=== PATIENT | female | born 1975 | race Caucasian/White ===

== ENCOUNTER 2020-01-23 13:57 | Outpatient (REF) | payer OTHER, SELFPAY | END 2020-01-23 13:58 | disposition home or self-care (01) | LOC: HO.LAB 13:57 | PROVIDERS: Visit Provider Internal Medicine | DX: Z20.828 Contact with and (suspected) exposure to other viral communicable diseases (principal) | CPT/HCPCS: C9803; U0003 ==

== ENCOUNTER 2021-10-28 09:51 | Outpatient (REF) | payer OTHER, SELFPAY ==
[2021-10-28 11:50] LABS: Folate 8.1 ng/mL (> or = 4.0); Vitamin B12 234 pg/mL (200-900)
[2021-11-01 11:17] LABS: 18 KD (IgG) Band NON-REACTIVE; 23 KD (IgG) Band NON-REACTIVE; 23 KD (IgM) Band REACTIVE; 28 KD (IgG) Band NON-REACTIVE; 30 KD (IgG) Band NON-REACTIVE; 39 KD (IgM) Band NON-REACTIVE; 39KD (IgG) Band NON-REACTIVE; 41 KD (IgM) Band NON-REACTIVE; 41KD (IgG) Band NON-REACTIVE; 45 KD (IgG) Band NON-REACTIVE; 58 KD (IgG) Band NON-REACTIVE; 66 KD (IgG) Band NON-REACTIVE; 93 KD (IgG) Band NON-REACTIVE; Lyme IgG Blot Interp NEGATIVE (NEGATIVE); Lyme IgM Blot Interp NEGATIVE (NEGATIVE)
[2021-11-01 11:20] LABS: Lyme Abs Screen EQUIVOCAL
== END 2021-10-28 09:52 | disposition home or self-care (01) ==
LOC: HO.LAB 09:51
PROVIDERS: Visit Provider Psychiatry & Neurology Neurology
DX: R20.2 Paresthesia of skin (principal); G43.009 Migraine without aura, not intractable, without status migrainosus
CPT/HCPCS: 36415; 82607; 82746; 86617; 86618

== ENCOUNTER 2023-05-05 13:21 | Emergency (ER) | payer OTHER, SELFPAY ==
--- NOTE | ~2023-05-05 | CT_ITS ---
EXAMINATION: CT ABDOMEN AND PELVIS WITHOUT CONTRAST CLINICAL INFORMATION: Right-sided flank pain COMPARISON: Abdominal ultrasound 04/28/[address] abdomen pelvis 02/13/2010 TECHNIQUE: Multidetector volumetric imaging was performed from the superior aspect of the liver through the pubic symphysis. Sagittal and coronal reformatted images were obtained on the technologist's workstation. This CT examination was performed using dose optimization techniques as appropriate, variously including the following: *Automated exposure control *Adjustment of mA and/or kV according to patient size (this includes techniques or standardized protocols for targeted exams where dose is matched to indication/reason for exam; i.e. extremities or head) *Use of iterative reconstruction technique DLP: 312 mGy-cm FINDINGS: LUNG BASES: The visualized lung bases are unremarkable. LIVER, GALLBLADDER, AND BILIARY TREE: The liver is normal in size, shape, and attenuation. No focal hepatic lesion or biliary ductal dilatation is present. Gallstones are suspected in the gallbladder with an homogeneity. The gallbladder is otherwise unremarkable with no evidence of calcified gallstones, gallbladder wall thickening, or obvious pericholecystic inflammatory changes. PANCREAS: Unremarkable. SPLEEN: Unremarkable. ADRENAL GLANDS: Unremarkable. KIDNEYS AND URETERS: The kidneys are normal in size, shape, and attenuation. Small bilateral punctate calculi are present in the kidneys the largest at the left upper pole measuring only 2 mm in size. No hydronephrosis, hydroureter, or ureteral calculi seen. No perinephric stranding. No renal masses. BLADDER: Bladder is only partially distended but unremarkable. GASTROINTESTINAL TRACT: The small and large bowel are unremarkable aside from some colonic diverticula without diverticulitis.. The appendix is unremarkable. ABDOMINAL WALL: No significant hernia is appreciated. LYMPH NODES: No retroperitoneal lymphadenopathy. VASCULAR: Unremarkable. PELVIC VISCERA: The uterus and adnexa are unremarkable. IUD is present in good position in the uterus. OSSEOUS STRUCTURES: Unremarkable. CT/CT abdomen pelvis wo IV con IMPRESSION: 1. A cause for the patient's right-sided flank pain has not been found. 2. Incidental note made of bilateral nonobstructing renal calculi, cholelithiasis and colonic diverticulosis without diverticulitis. Fleischner guidelines were followed.
[2023-05-05 13:41] VITALS: BP 107/51; PULSE 76; RESP 18; TEMP 37; O2SAT 100; BMI 21.3
--- NOTE | 2023-05-05 13:47 | ED_ITS ---
HPI - Back Pain/Injury General Chief Complaint: Back Pain/Injury Stated Complaint: Lower back/hip pain no injury Time Seen by Provider: 05/05/23 17:23 Source: patient Mode of arrival: ambulatory History of Present Illness HPI Narrative: 47-year-old female without significant past medical history other than renal colic presents with 1 week right flank pain but pain is more significant over mid buttock with radiation down into the right lower extremity but no bowel or bladder issues, no fevers or chills. Patient has been to [facility] as well as urgent care and has a follow-up with her primary care doctor on 05/13. Related Data Allergies Allergy/AdvReac Type Severity Reaction Status Date / Time morphine [Morphine] Allergy Mild VOMITING Verified 05/05/23 13:46 hydromorphone [Dilaudid] Allergy Unknown Vomiting Verified 05/05/23 13:46 From Dilaudid Allergy Severe VOMITING Uncoded 11/02/19 15:06 Review of Systems 2 Review of Systems: Pertinent positives and negatives as stated in HPI [facility] Past Medical History Source: nursing notes reviewed Social History Social History Advance Directives: No Advance Directives Information Provided: No Physical Exam 2 Vital Signs: Vital Signs: Last Vital Signs Temp 0 F L 05/05/23 19:03 Pulse 0 L 05/05/23 19:03 Resp 0 L 05/05/23 19:03 BP 0/0 L 05/05/23 19:03 Pulse Ox 100 05/05/23 13:41 O2 Del Method Room Air 05/05/23 13:41 BMI result Body Mass Index 21.3 VITAL SIGNS: Reviewed. GENERAL: Well developed, well nourished, in no acute distress. HEAD: Normocephalic/atraumatic EYES: PERRLA, EOMI LUNGS: Normal breath sounds. No adventitious sounds or accessory muscle use. CARDIOVASCULAR: Regular rate and rhythm without noted murmurs ABDOMEN: Soft, non-tender, non-distended with bowel sounds. MUSCULOSKELETAL: No tenderness, deformities, or effusions noted on gross inspection. EXTREMITIES: No cyanosis, clubbing or edema. SKIN: Inspection of the skin reveals no rashes NEUROLOGIC: Alert and oriented x 4. Strength and sensation to light touch were grossly intact x 4,DTRs intact. Course Course Course Narrative: This is an RME: Additional HPI, ROS, PE not included below will be deferred to primary provider. This is a [id number], with a hx of kidney stones, presenting to the ER with complaints of R flank pain, and low back pain x 1 week. Patient states that she is getting out of her vehicle and she suddenly developed right-sided flank pain. She has been seen at urgent care where she was given muscle relaxants which she has been taking without relief. Patient with exquisite tenderness overlying her CVA region. She has a history of kidney stones. Will obtain basic labs, UA, CT abdomen. She also states that she had a syncopal episodes on Wednesday. No chest pain or shortness of breath. Plan: Labs, CT abdomen and pelvis, UA Medications Administered Discontinued Medications Generic Name Dose Route Start Last Admin Trade Name Freq PRN Reason Stop Dose Admin Acetaminophen 975 mg 05/05/23 18:40 05/05/23 19:01 Acetaminophen 325 Mg Tablet PO 05/05/23 18:41 Not Given ONCE ONE Cyclobenzaprine HCl 10 mg 05/05/23 18:41 05/05/23 19:02 Cyclobenzaprine Hcl 10 Mg Tablet PO 05/05/23 18:42 Not Given ONCE ONE Lidocaine 1 patch 05/05/23 18:40 05/05/23 19:02 Lidocaine 4 % Patch Adh..Patch TRANSDERMA 05/05/23 18:41 Not Given ONCE ONE Protocol Naproxen 500 mg 05/05/23 18:40 05/05/23 19:02 Naproxen 500 Mg Tablet PO 05/05/23 18:41 Not Given ONCE ONE Ondansetron HCl 4 mg 05/05/23 18:42 05/05/23 19:02 Ondansetron Odt 4 Mg Tab.Rapdis TRANSLINGU 05/05/23 18:43 Not Given ONCE ONE Tramadol HCl 25 mg 05/05/23 18:41 05/05/23 19:02 Tramadol Hcl 50 Mg Tablet PO 05/05/23 18:42 Not Given ONCE ONE Medical Decision Making Medical Decision Making MDM Narrative: 47-year-old female with history and clinical presentation, DDX: Musculoskeletal, lumbar radiculopathy, sciatica, no concern for spinal abscess or cauda equina and there is a possibility of renal colic or ectopic . Reviewed all investigations and hematologic indices demonstrate a noninfectious leukocytosis as patient is afebrile and there is no anemia or thrombocytopenia. Chemistry Anesthesia negative for ROXI/electrolyte or liver enzyme derangements and beta hCG is undetectable. Urinalysis is noted be a dirty sample and do not feel that the bacteria and leukocyte esterase are associated with any urinary tract infection. CT scan negative for any acute findings to suggest renal colic/appendicitis and otherwise my interpretation is agreement with radiology's impression. Patient was offered her evening medications but declined taking them, she was also informed of all results. Differential Diagnosis Differential Diagnoses: The differential diagnosis associated with the presentation includes Please see the discussion above Admission/Observation Consideration of admission/observation: Escalation of care including admission/observation considered Please see the discussion above Lab Data MDM Lab Attestation statement: I reviewed the patient's lab results. Please see the discussion above 05/05/23 14:06 05/05/23 14:06 Labs: Lab Results 05/05/23 05/05/23 Range/Units 14:06 14:08 WBC 12.0 H (4.8-10.8) X10*3/uL RBC 4.53 (4.20-5.50) X10*6/uL Hgb 13.5 (12.0-16.0) g/dl Hct 40.9 (37.0-47.0) % MCV 90.3 (80.0-98.0) fL MCH 29.8 (27.0-33.0) pg MCHC 33.0 (31.0-35.0) g/dl RDW 13.9 (11.0-16.0) % Plt Count 253 (160-400) X10*3/uL MPV 11.5 (9.4-12.3) fL Immature Gran % (Auto) 0.3 (0.0-0.4) % Neut % (Auto) 69.0 (45-73) % Lymph % (Auto) 23.1 (20-40) % [place] % (Auto) 5.9 (2-11) % Eos % (Auto) 1.3 (0-4) % Baso % (Auto) 0.4 (0-2) % Lymph # (Auto) 2.8 (1.2-4.9) X10*3/uL [place] # (Auto) 0.7 (0.1-1.2) X10*3/uL Eos # (Auto) 0.2 (0.0-0.4) X10*3/uL Baso # (Auto) 0.1 (0.0-0.2) X10*3/uL Abs Immat Gran (auto) 0.04 H (0.00-0.03) X10*3/uL Absolute Neuts (auto) 8.3 (2.0-8.3) x10*3/uL Absolute Nucleated RBC 0.000 (0.0-0.012) X10*3/uL Nucleated RBC % (auto) 0.0 (0.0-0.2) /100WBC Sodium 139 (135-145) mmol/L Potassium 3.8 (3.3-5.1) mmol/L Chloride 107 (96-108) mmol/L Carbon Dioxide 28 (22-29) mmol/L Anion Gap 8 L (12-20) BUN 12 (9-16) mg/dL Creatinine 0.69 (0.5-1.4) mg/dL Estim Creat Clear Calc 84.2 Estimated GFR > 60 Random Glucose 83 (60-115) mg/dL Calcium 9.5 (8.4-10.2) mg/dL Total Bilirubin 0.3 (0.0-1.0) mg/dL Direct Bilirubin 0.1 (0.0-0.5) mg/dL AST 16 (5-31) U/L ALT 21 (0-31) U/L Alkaline Phosphatase 58 (39-117) U/L Total Protein 6.7 (6.5-8.0) g/dL Albumin 3.9 (3.5-5.0) g/dL Beta HCG, Quant < 2 mIU/mL Urine Color Yellow Urine Appearance Turbid Urine pH 6.5 (5.0-9.0) Ur Specific Cool 1.025 (1.005-1.025) Urine Protein Negative (Neg-Trace) mg/dL Urine Glucose (UA) Negative (Negative) mg/dL Urine Ketones Trace (Negative) mg/dL Urine Blood Negative (Negative) Urine Nitrite Negative (Negative) Ur Leukocyte Esterase Small (1+) H (Negative) Urine RBC 0-2 (0-2) /HPF Urine WBC 6-10 H (0-5) /HPF Ur Squamous Epith Cells >20 (0-2) /HPF Urine Bacteria 4+ (None Seen) Hyaline Casts 0-2 (0-2) /LPF Radiology Impression Discussion of test interpretation with radiology: I have reviewed the radiologist's reading. Radiologist Impression: Please see the discussion above Discharge Plan Discharge Clinical Impression: Lumbar radiculopathy, Sciatica Patient Disposition: Home, Self-Care Instructions: Sciatica (ED), Lumbar Radiculopathy (ED), Lower Back Exercises (ED) Additional Instructions: 1. Recommend adding 1000 mg of Tylenol, every 6 hours for additional symptom relief. 2. Please keep the appointment that you have with your primary care doctor in discuss a physical therapy referral. Do not hesitate to return to the emergency room for any worsening symptoms. Referrals: Jesus Taylor MD [Primary Care Provider] - Interventions: ED Discharge Assessment Last Done: 05/05/23 19:03 Discharge Date/Time: 05/05/23 19:04
[2023-05-05 14:18] LABS: MANUAL DIFF FLAG NO
[2023-05-05 14:20] LABS: Basophils Absolute Auto 0.1 X10*3/uL (0.0-0.2); Basophils Percent Auto 0.4 % (0-2); Eosinophils Absolute Auto 0.2 X10*3/uL (0.0-0.4); Eosinophils Percent Auto 1.3 % (0-4); Hematocrit 40.9 % (37.0-47.0); Hemoglobin 13.5 g/dl (12.0-16.0); Imm Gran Abs Auto 0.04 X10*3/uL (0.00-0.03); Imm Gran Pct Auto 0.3 % (0.0-0.4); Lymphocytes Absolute Auto 2.8 X10*3/uL (1.2-4.9); Lymphocytes Percent Auto 23.1 % (20-40); Mean Corpuscular Hemoglobin 29.8 pg (27.0-33.0); Mean Corpuscular Volume 90.3 fL (80.0-98.0); Mean Platelet Volume 11.5 fL (9.4-12.3); Monocytes Absolute Auto 0.7 X10*3/uL (0.1-1.2); Monocytes Percent Auto 5.9 % (2-11); Neutrophils Absolute Auto 8.3 x10*3/uL (2.0-8.3); Platelet Count 253 X10*3/uL (160-400); Red Blood Count 4.53 X10*6/uL (4.20-5.50); Red Cell Distribution Width 13.9 % (11.0-16.0)
[2023-05-05 14:21] LABS: Appearance Urine Turbid; Color Urine Yellow; Glucose Urine UA Negative (Negative); Leukocyte Esterase Urine Small (1+) (Negative); Nitrite Urine Negative (Negative); PH 6.5 (5.0-9.0); Specific Gravity - Urine 1.025 (1.005-1.025); UMIC TRIGGER UACC YES; Urine Blood Negative (Negative); Urine Ketones Trace mg/dL (Negative); Urine Protein Negative (Neg-Trace)
[2023-05-05 14:26] LABS: Bacteria Urine 4+ (None Seen); Hyaline Casts Urine 0-2 /LPF (0-2); RBC Urine 0-2 /HPF (0-2); Squamous Epithelial Cell Urine >20 /HPF (0-2); UACC Culture Trigger YES
[2023-05-05 14:39] LABS: Alanine Aminotransferase 21 U/L (0-31); Albumin Level 3.9 g/dL (3.5-5.0); Alkaline Phosphatase 58 U/L (39-117); Anion Gap 8 (12-20); Aspartate Amino Transferase 16 U/L (5-31); Bilirubin Direct 0.1 mg/dL (0.0-0.5); Bilirubin Total 0.3 mg/dL (0.0-1.0); Blood Urea Nitrogen 12 mg/dL (9-16); Calcium 9.5 mg/dL (8.4-10.2); Carbon Dioxide 28 mmol/L (22-29); Chloride 107 mmol/L (96-108); Creatinine Clr Calc Pharmacy 84.2; Estimated Glomerular Filt Rate > 60; Glucose Random 83 mg/dL (60-115); Potassium 3.8 mmol/L (3.3-5.1); Sodium 139 mmol/L (135-145); Total Protein 6.7 g/dL (6.5-8.0)
[2023-05-05 14:49] LABS: HCG Quantitative < 2 mIU/mL
--- NOTE | 2023-05-05 18:58 | PC.NURSE ---
pt came to the nurses station and stated she wasnt waiting to be medicated with her home meds that she can take her meds at home, pts significant other standing with patient stated come on lets leave this nurse attempted to encourage the patient to take the meds ordered pt refused. this nurse stated that I would go speak with the provider to get her discharge paperwork for her as the provider was just waiting for the patient to be medicated prior to putting her up for discharge and she was asked to wait in her room for this paperwork. this nurse spoke with provider who put her up for discharge since pt refusing to be medicated. Upon returning with discharge paperwork pt had already left without waiting for her paperwork.
[2023-05-05 19:03] VITALS: BP 0/0; PULSE 0; RESP 0; TEMP -17.7; TEMP 0
== END 2023-05-05 19:04 | disposition home or self-care (01) ==
PROVIDERS: Physician Assistant Medical; Emergency Provider Student in an Organized Health Care Education/Training Program; PCP Internal Medicine
DX: M54.16 Radiculopathy, lumbar region (principal); M54.40 Lumbago with sciatica, unspecified side
CPT/HCPCS: 36415; 74176; 80048; 80076; 81001; 84702; 85025; 87086; 99282; 99284